=== PATIENT | female | born 1940 | race Caucasian/White ===

== ENCOUNTER → 2017-03-02 18:25 | Outpatient (CLI) | payer MEDICARE, OTHER ==
[2014-11-12 07:06] VITALS: BMI 44.2
[~2017-03-02 18:25] MED LIST: ALBUTEROL0.63 MG/3; ATIVAN2 MG PO; AVAPRO150 MG PO; BAYER CHEWABLE81 MG PO; CELEXA20 MG PO; COMBIVENT RESPIM4 GM INH; FEXOFENADINE HC60 MG PO; FLOVENT DI50 MCG/DIS; HYDROCODONE-APA1 TAB PO; LASIX80 MG PO; POTASSIUM; PRAVASTATIN SOD10 MG PO
== END | disposition home or self-care (01) ==
LOC: D.MAMMO 14:45
DX: Z12.31 Encounter for screening mammogram for malignant neoplasm of breast (principal)

== ENCOUNTER 2017-06-07 11:19 | Outpatient (CLI) | payer MEDICARE, OTHER ==
[~2017-06-07] VITALS: Ht 182.9 cm; Wt 154.5 kg
--- NOTE | ~2017-06-07 | HEMODYNAMI ---
PATIENT:BABAR BROOKE MEDICAL RECORD: [id number] : 42 LOCATION:[facility] ADMISSION DATE: 06/07/17 Generatedon:06/07/201714:34 Patient name: BABAR BROOKE Patient #: [id number] SSN: : 1940 Date of study: 06/07/2017 Page: Of Hemodynamic Procedure Report Patient Data Patient Demographics Procedure consent was obtained First Name: BABAR Gender: Female Last Name: MENDY : 1940 Middle Initial: M Age: 77 year(s) Patient #: [id number] Race: Unknown Additional ID: [id number] Contact details Address: [address] [place] [address] State: [place] City: [place] Zip code: [address] Admission Admission Data Admission Date: 06/07/2017 Admission Time: 11:19 Admit Source: Other Lab Results Lab Result Date: 06/07/2017 Lab Result Time: 0:15 Biochemistry Name Units Result Min Max BUN mg/dl 21 --(----)-* 7 18 Creatinine mg/dl 0.8 --(-*--)-- 0.6 1.3 CBC Name Units Result Min Max Hematocrit % 35.4 *-(----)-- 42 54 Hemoglobin g/dl 11.6 *-(----)-- 13.5 17.5 Procedure Procedure Types Cath Procedure Diagnostic Procedure C [facility] w/Coronaries Miscellaneous Procedures Moderate Sedation up to 30 minutes Procedure Description Procedure Date Procedure Date: 06/07/2017 Procedure Start Time: 14:18 Procedure End Time: 14:32 Procedure Staff Name Function Gabriel Fay MD Performing Physician Rain Marie RT Scrub Marko Rubio RN Nurse Oscar Montiel RT Heart Nurse Dionte Sesay RT Monitor Procedure Data Cath Procedure Fluoroscopy Diagnostic fluoroscopy Total fluoroscopy Time: 2.1 time: 2.1 min min Diagnostic fluoroscopy Total fluoroscopy dose: 598 dose: 598 mGy mGy Contrast Material Contrast Material Type Amount (ml) Isovue 300 57 Entry Location Entry Primary Successful Side Size Upsize Upsize Entry Closure Succes sful Closure Location (Fr) 1 (Fr) 2 (Fr) Remarks Device Remarks Femoral Right 5 Fr Exoseal artery Estimated blood loss: 5 ml Diagnostic catheters Device Type Used For End Catheter Placement Cordis 5Fr JL 4.0 Procedure Catheter (MP) Cordis 5Fr 3DRC Catheter Procedure (MP) Cordis 5Fr Pigtail Procedure Catheter (MP) Procedure Complications No complications Procedure Medications Medication Administration Route Dosage Oxygen NC 2 l/min Heparin Flush Bag added to field 2 bags (1000units/500ml NS) 0.9% NaCl I.V. 100 ml/hr Versed I.V. 1 mg Fentanyl I.V. 50 mcg Hemodynamics Rest Heart Rate: 53 (bpm) Pressure Samples Time Site Value (mmHg) Purpose Heart Use Rate(bpm) 14:26 LV 138/10,20 Snapshot 61 14:27 AO 137/52(85) Pullback 56 14:27 LV 137/13,22 Pullback 56 Gradients Valve Time Site 1 Site 2 Mean SEP/DFP Peak To Heart Use (mmHg) (sec/min) Peak Rate (mmHg) (bpm) Aortic 14:27 LV AO 7 18 0 56 137/13,22 137/52(85) Calculations Valve P-P Mean Valve Index Valve Source Name Gradient Area Flow (cm2) Aortic 0 7 0 7 Snapshots Pre Cath Intra NCS Post Cath Vital Signs Time Heart Resp SPO2 NIBP (mmHg) Rhythm Pain Sedation Rate (ipm) (%) Status Level (bpm) 14:08:35 56 20 100 149/128(148) NSR 0 (11) 10(A) , No pain 14:13:26 50 19 100 153/68(124) NSR 0 (11) 10(A) , No pain 14:18:15 53 20 100 144/76(109) NSR 0 (11) 9(A) , No pain 14:23:59 52 18 100 137/54(102) NSR 0 (11) 9(A) , No pain 14:28:46 56 17 100 135/61(109) NSR 0 (11) 9(A) , No pain 14:30:37 51 19 100 137/65(108) NSR 0 (11) 9(A) , No pain Medications Time Medication Route Dose Verified Delivered Reason Notes Effec tiveness by by 14:07:24 Oxygen NC 2 Marko Marko Per l/min Ramiro Rubio RN physician RN 14:07:34 Heparin Flush added 2 Marko Nicky used for Bag to bags Ramiro Rubio commercial artist (1000units/500ml field RN NS) 14:07:44 0.9% NaCl I.V. 100 Marko Zhu Per ml/hr Ramiro Rubio RN physician RN 14:14:08 Fentanyl I.V. 50 Marko Marko for mcg Ramiro Rubio RN sedation RN 14:14:43 Versed I.V. 1 mg Marko Marko for Ramiro Rubio RN sedation assembler leather goods Log Time Note 13:40:35 Oscar Montiel RT(R) sent for patient. Start room use. 13:52:05 Informed consent obtained and on chart 13:52:10 Admit Source: Other 13:52:33 Diagnostic Cath status Elective 13:52:43 Time tracking: Regular hours 13:52:46 Plan of Care:Hemodynamics will remain stable., Cardiac rhythm will remain stable., Comfort level will be maintained., Respiratory function will remain adequate., Patient/ family verbilizes understanding of procedure., Procedure tolerated without complication., Recovers from procedure without complications.. 13:54:15 Patient received from Pre/Post Procedure Room to CCL 2 Alert and oriented. Tansferred to table in Supine position. 13:54:16 Warm blankets applied, and augustine hugger turned on for patient comfort. 13:54:16 Correct patient and procedure confirmed by team. 13:54:17 ECG and BP/O2 sat monitors applied to patient. 13:58:53 H&P Date Dictated: 06/07/2017 Within 30 days and on chart., H&P Addendum completed by physician on day of procedure. (MUST COMPLETE FOR ALL OUTPATIENTS). 13:58:55 Pre-op teaching completed and patient verbalized understanding. 13:58:58 Family in patients room. 13:59:00 Patient NPO since Midnight. 13:59:02 Is the patient allergic to Iodine/contrast media? No. 13:59:06 Is patient on blood thinner?No 13:59:10 Patient diabetic? No. 13:59:13 Previous problem with sedation/anesthesia? No ? 13:59:14 Patient not . Patient is over age 55. 13:59:17 Snore? Yes 13:59:18 Sleep apnea? Yes 13:59:20 Deviated septum? No 13:59:20 Opens mouth fully? Yes 13:59:21 Sticks out tongue? Yes 13:59:34 Airway obstruction? Yes COPD, Asthma 13:59:41 Dentures? Yes IN 14:06:57 Vital chart was started 14:07:24 Oxygen 2 l/min NC was administered by Marko Rubio RN; Per physician; 14:07:34 Heparin Flush Bag (1000units/500ml NS) 2 bags added to field was administered by Marko Rubio RN; used for procedure; 14:07:44 0.9% NaCl 100 ml/hr I.V. was administered by Marko Rubio RN; Per physician; 14:10:54 Modified Rajendra's test Ulnar > 7 seconds. 14:11:00 IV patent on arrival in right antecubital with 0.9% NaCl at [facility]. 14:11:37 Lab Result : BUN 21 mg/dl 14:11:37 Lab Result : Hemoglobin 11.6 g/dl 14:11:37 Lab Result : Creatinine 0.8 mg/dl 14:11:37 Lab Result : Hematocrit 35.4 % 14:11:39 Lab results completed and on chart. 14:11:42 Right groin area was prepped with chlora-prep and draped in sterile fashion 14:11:48 Alarms reviewed by R. N. 14:11:48 Sharps counted by scrub and verified by R.N. 14:11:56 Use device set Femoral Dx 14:11:57 Tegaderm 4 x 4 opened to sterile field. 14:11:58 Acist Manifold opened to sterile field. 14:11:59 Acist Hand Control opened to sterile field. 14:12:00 Acist Syringe opened to sterile field. 14:12:00 Bag Decanter opened to sterile field. 14:12:00 Medline Cath Pack opened to sterile field. 14:12:01 Terumo 5Fr Linch Sheath opened to sterile field. 14:12:01 St Cristian 260cm J .035 wire opened to sterile field. 14:12:02 Diagnostic Infinity 5Fr Multipack catheter opened to sterile field. 14:12:07 Physician arrived 14:12:07 --------ALL STOP TIME OUT------ 14:12:08 Final Timeout: patient, procedure, and site verified with staff and physician. All members of the team are in agreement. 14:12:09 Right groin site verified by team. 14:12:12 Physical assessment completed. ASA score P 2 - A patient with mild systemic disease as per Gabriel Fay MD. 14:12:15 Sedation plan: IV Moderate Sedation Versed, Fentanyl 14:14:08 Fentanyl 50 mcg I.V. was administered by Marko Rubio RN; for sedation; 14:14:41 Baseline sample Acquired. 14:14:43 Versed 1 mg I.V. was administered by Marko Rubio RN; for sedation; 14:17:57 Procedure started. 14:17:57 Full Disclosure recording started 14:18:08 Local anesthetic to right femoral artery with Lidocaine 2% by Gabriel Fay MD.INITIAL ACCESS ONLY 14:18:16 A 5 Fr sheath was inserted into the Right Femoral artery 14:18:34 Zero performed for pressure channel P1 14:19:21 Rhythm: sinus rhythm 14:21:06 A Cordis 5Fr JL 4.0 Catheter (MP) was advanced over the wire and used for Procedure. 14:22:02 LCA angiography performed. 14:22:58 Catheter exchanged over wire. 14:23:02 A Cordis 5Fr 3DRC Catheter (MP) was advanced over the wire and used for Procedure. 14:24:12 RCA angiography performed. 14:24:52 Catheter exchanged over wire. 14:24:55 A Cordis 5Fr Pigtail Catheter (MP) was advanced over the wire and used for Procedure. 14:26:16 LV hemodynamics recorded. 14:26:42 LV gram done using ARRIOLA 14::44 Injector settings: Ml/sec: 10, Volume: 20, 14::27 EF : 35 % 14::42 Catheter removed. 14::49 Cordis 5Fr Exoseal opened to sterile field. 14:28:47 Sheath removed intact; hemostasis achieved with Exoseal to the Right Femoral artery. 14:28:50 Procedure ended.(Physican Out) 14:29:38 Fluoroscopy time 02.10 minutes. ::42 Fluoroscopy dose: 598 mGy 14:: Flurop Dose total: 598 14:29:45 Contrast amount:Isovue 300 57ml. 14:29:46 Sharps counted by scrub and verified by R.N. 14:29:48 Insertion/operative site no bleeding no hematoma. 14:29:51 Post-op/insertion site Right Femoral artery dressed using a 4 x 4 and Tegaderm. 14:29:57 Post right femoral artery:stable, soft, clean and dry 14:29:59 Post Procedure Pulses reassessed and unchanged 14:30:01 Post-procedure physical assessment completed. ASA score P 2 - A patient with mild systemic disease as per Gabriel Fay MD. 14:30:03 Post procedure rhythm: unchanged. 14:30:07 Estimated blood loss: 5 ml 14:30:08 Post procedure instruction explained to patient.Patient verbalizes understanding. 14:30:08 Patient needs reinforcement of post procedure teaching. 14:30:28 Procedure type changed to Cath procedure, Diagnostic procedure, LHC, LHC w/Coronaries, Miscellaneous Procedures, Moderate Sedation up to 30 minutes 14:32:22 Procedure and supply charges have been captured, reviewed, submitted and are correct. 14:32:26 Procedure Complication : No complications 14:32:30 Vital chart was stopped 14:32:30 See physician's report for complete and final results. 14:32:31 Report given to Pre/Post Procedure Room. 14:32:33 Patient transfered to Pre/Post Procedure Room with Stretcher. 14:32:39 Procedure ended. 14:32:39 Full Disclosure recording stopped 14:32:44 End room use (Document Last) Device Usage Item Name Manufacture Quantity Catalog Hospital Part Current Minimal Lo t# / Number Charge Number Stock Stock Serial# Code Tegaderm 4 3M 1 [id number] [id number] [id number] 5 x 4 Acist Acist 1 21609 384317 298534 864349 5 Manifold [employer] Inc Acist Hand Acist 1 93581 954552 873800 105632 5 Control Medical Systems Inc Acist Acist 1 47273 180386 006550 538326 20 Syringe Medical Systems Inc Bag Microtek 1 2002S 187874 74742 891565 5 [employer]ip[employer] Medline Cardinal 1 [id number] 646744 78235 402236 5 Cath Pack Health Terumo 5Fr Terumo 1 [id number] 276846 217328 532148 [address] Crist[address] St Cristian 1 105459 813907 926116 505328 30 260cm J .035 wire Diagnostic Cardinal 1 [id number] 592710 54113 977837 30 Infinity Health 5Fr Multipack catheter Cordis 5Fr Cardinal 1 351455 5 JL 4.0 Health Catheter (MP) Cordis 5Fr Cardinal 1 399746 5 3DRC Health Catheter (MP) Cordis 5Fr Cardinal 1 904780 5 Pigtail Health Catheter (MP) Cordis 5Fr Cardinal 1 EX500 823797 624402 187273 10 [facility] UNI5 Signature Audit [place] Stage Time Signature Unsigned Intra-Procedure 06/07/2017 Dionte Sesay 2:34:48 PM RT(R) Signatures Monitor : Dionte Sesay RT Signature : Date : Time : [address] [place] [address]
[2017-06-07] MEDS ORDERED: VITAMIN B-122500 MCG PO (12:30)
[2017-06-07] MEDS ORDERED: DEXILANT60 MG PO (12:30)
[2017-06-07] MEDS ORDERED: TESSALON PERLE100 MG PO (12:31)
[2017-06-07] MEDS ORDERED: COMBIVENT RESPIM4 GM INH (12:32)
[2017-06-07 12:33] LABS: BASOPHILS 0.3 % (0-2); HEMATOCRIT 35.4 % (36.0-48.0); HEMOGLOBIN 11.6 g/dL (12-16); IMMATURE GRANULOCYTES 0.2 % (0-5); LYMPHOCYTES 34.7 % (15-50); MCH 31.3 pg (26.0-34.0); MCHC 32.8 g/dL (31.0-37.0); MCV 95.4 fL (80.0-100.0); MEAN PLATELET VOLUME 9.6 fL (7.4-10.4); MONOCYTES 8.9 % (2-11); NEUTROPHILS 53.9 % (40-80); PLATELET COUNT 306 10x3/uL (130-400); RBC 3.71 10x6/uL (4.00-5.40); RDW 14.6 % (11.5-14.5)
[2017-06-07] MEDS ORDERED: CALCIUM 600+D T1 TA1 PO (12:33)
[2017-06-07] MEDS ORDERED: SINGULAIR10 MG PO (12:34)
[2017-06-07] MEDS ORDERED: ZYLOPRIM300 MG PO (12:35)
[2017-06-07 12:36] VITALS: BP 141/59; Ht 182.9 cm; Wt 154.5 kg
[2017-06-07 12:40] LABS: ANION GAP 10.1 mmol/L (8-16); CALCIUM 8.9 mg/dL (8.5-10.1); CARBON DIOXIDE 32.5 mmol/L (21.0-32.0); CREATININE - SERUM 0.8 mg/dL (0.6-1.3); POTASSIUM - SERUM 4.6 mmol/L (3.5-5.1)
--- NOTE | 2017-06-07 14:57 | NUR ---
1445 RECIEVED TO ROOM VIA STRETCHER WITH REPORTS OF A CLEAN CATH 6 FR EXOSEAL R/GROIN CDI NO BLEEDING NO HEMATOMA NOTED. VSS WITH CHEST PAIN DENIED FAMILY AT SIDE
--- NOTE | 2017-06-07 15:17 | NUR ---
1500 REPORT AND CARE FROM BELEM HOWARD RN, PT DENIES ANY C/O, DRESSING TO RIGHT GROIN IS CDI, AREA IS SOFT AND NONTENDER. PEDAL PULSES PALPABLE, CAP REFILL IS BRISK, VSS. FAMILY AT BEDSIDE. PT INSTRUCTED TO KEEP RIGHT LEG STRAIGHT AND HEAD TO PILLOW AND VERBALIZES UNDERSTANDING. CALL LIGHT IS IN REACH. FAMILY AT BEDSIDE.
--- NOTE | 2017-06-07 15:30 | NUR ---
1530 PT SLEEPING,AWAKENS EASILY TO VERBAL STIMULI, DRESSING TO RIGHT GROIN IS CDI, AREA IS SOFT AND NONTENDER. PEDAL PULSES PALPABLE. AT BEDSIDE. PT DENIES NEEDS AT THIS TIME.
--- NOTE | 2017-06-07 16:00 | NUR ---
1600 PT DENIES ANY C/O. DRESSING TO RIGHT GROIN CDI, VSS, CALL LIGHT IN REACH, PT DENIES NEEDS AT THIS TIME.
--- NOTE | 2017-06-07 17:11 | NUR ---
1630 SANDWICH TRAY SERVED. DRESSING REMAINS CDI, GROIN IS SOFT AND NONTENDER. PEDAL PULSES PALPABLE. AT BEDSIDE, PT DENIES ANY C/O AT THIS TIME.
--- NOTE | 2017-06-07 17:13 | NUR ---
1700 IV DC'D WITH CATH INTACT. DRESSING REMAINS CDI TO RIGHT GROIN, PT DENIES ANY C/O. PT IS DRESSING FOR DC TO HOME.
--- NOTE | 2017-06-07 17:54 | NUR ---
1730 PT IS DRESSED FOR DC TO HOME. DRESSING TO RIGHT GROIN IS CDI, AREA IS SOFT AND NONTENDER. REVIEWED DC INSTRUCTIONS WITH PT WHO VERBALIZES UNDERSTANDING. WRITTEN COPIES PROVIDED TO PT. PT ESCORTED TO PRIVATE AUTO VIA WC BY STAFF WITH DRIVING HER HOME.
== END 2017-06-07 17:30 | disposition home or self-care (01) ==
LOC: D.CATH 11:19
PROVIDERS: Internal Medicine Cardiovascular Disease
DX: I25.10 Atherosclerotic heart disease of native coronary artery without angina pectoris (principal); I51.9 Heart disease, unspecified; R94.31 Abnormal electrocardiogram [ECG] [EKG]; I42.9 Cardiomyopathy, unspecified; I10 Essential (primary) hypertension; J44.9 Chronic obstructive pulmonary disease, unspecified; E78.5 Hyperlipidemia, unspecified; G62.9 Polyneuropathy, unspecified; K21.9 Gastro-esophageal reflux disease without esophagitis; F32.9 Major depressive disorder, single episode, unspecified; F41.9 Anxiety disorder, unspecified; Z87.891 Personal history of nicotine dependence; Z79.82 Long term (current) use of aspirin; Z79.891 Long term (current) use of opiate analgesic; Z79.899 Other long term (current) drug therapy; Z88.2 Allergy status to sulfonamides

== ENCOUNTER → 2017-09-21 13:26 | Outpatient (CLI) | payer MEDICARE, OTHER ==
[2017-06-07 12:36] VITALS: BMI 46.2
[~2017-09-21 13:26] MED LIST changes: +CALCIUM 600+D T1 TA1 PO; +DEXILANT60 MG PO; +K-DUR20 MEQ PO; +SINGULAIR10 MG PO; +TESSALON PERLE100 MG PO; +VITAMIN B-122500 MCG PO; +ZYLOPRIM300 MG PO
== END | disposition home or self-care (01) ==
LOC: D.RAD 09-01 08:00 → D.RT 09-01 08:00 → D.RAD 09-01 09:00 → D.RT 13:26
DX: J45.909 Unspecified asthma, uncomplicated (principal)

== ENCOUNTER 2017-10-01 15:03 | Observation (INO) | payer MEDICARE, OTHER ==
[~2017-10-01] VITALS: Ht 182.9 cm; Wt 152.4 kg
[~2017-10-01 15:03] MED LIST changes: -K-DUR20 MEQ PO
[2017-10-01 17:31] LABS: APPEARANCE CLEAR (CLEAR); COLOR YELLOW (YELLOW); GLUCOSE NEGATIVE (NEGATIVE); KETONE NEGATIVE (NEGATIVE); NITRITE NEGATIVE (NEGATIVE); PROTEIN NEGATIVE (NEGATIVE)
[2017-10-01 17:32] LABS: BILIRUBIN NEGATIVE (NEGATIVE); UROBILINOGEN NORMAL (NORMAL)
[2017-10-01 17:53] LABS: BASOPHILS 0.1 % (0-2); EOSINOPHILS 0.7 % (0-7); HEMATOCRIT 34.3 % (36.0-48.0); HEMOGLOBIN 11.3 g/dL (12-16); IMMATURE GRANULOCYTES 0.3 % (0-5); LYMPHOCYTES 20.6 % (15-50); MCHC 32.9 g/dL (31.0-37.0); MCV 94.2 fL (80.0-100.0); MEAN PLATELET VOLUME 9.4 fL (7.4-10.4); MONOCYTES 4.7 % (2-11); NEUTROPHILS 73.6 % (40-80); PLATELET COUNT 298 10x3/uL (130-400); RBC 3.64 10x6/uL (4.00-5.40); RDW 14.6 % (11.5-14.5)
[2017-10-01 18:11] LABS: ALBUMIN 3.2 g/dL (3.4-5.0); BILIRUBIN - TOTAL 0.4 mg/dL (0.2-1.3); CARBON DIOXIDE 31.8 mmol/L (21.0-32.0); CREATININE - SERUM 0.8 mg/dL (0.6-1.3); POTASSIUM - SERUM 3.8 mmol/L (3.5-5.1); PROTEIN - SERUM 6.8 g/dL (6.4-8.2)
[2017-10-02] VITALS: BP 84/51
[2017-10-02] MEDS ORDERED: K-DUR20 MEQ PO (00:07)
[2017-10-02 00:56] VITALS: BP 84/54; BMI 45.7
--- NOTE | 2017-10-02 01:05 | NUR ---
ADMISSION ASSESSMENT COMPLETE. CALLED DR MITTAL PER PT REQUEST FOR NORCO 10 Q6 PRN, AND ATIVAN 2 MG PO QHS/PRN. ORDERS RECEIVED. WILL MONITOR FOR NEEDS.
[2017-10-02 01:44] LABS: CKMB 0.8 U/L (0.0-3.6); CREATINE KINASE 58 UL (21-215)
[2017-10-02 01:48] LABS: TROPONIN-I < 0.017 ng/mL (0.000-0.060)
[2017-10-02 04:00] VITALS: BP 136/52
--- NOTE | 2017-10-02 07:00 | NUR ---
PT REC'D FROM [facility]. RESTING IN BED EATING BREAKFAST. NO COMPLAINTS OF PAIN. AAOX4. SLIGHT WEAKNESS NOTED TO BLE. PT STATES SHE HAS BEEN GETTING UP TO THE BSC WITH THE HELP OF ONE PERSON. TELEMETRY IN PLACE. REGULAR HEART RATE AND RHYTHM. LUNG SOUNDS CLEAR AND EQUAL BILAT. BOWEL SOUNDS ACTIVE X4 QUADS. SKIN CDI. PIV TO L HAND FREE OF REDNESS AND SWELLING. BED LOW, CALL LIGHT IN REACH, DENIES NEEDS. CPOC.
[2017-10-02 07:43] LABS: CKMB 0.8 U/L (0.0-3.6); CREATINE KINASE 47 UL (21-215)
[2017-10-02 07:46] LABS: TROPONIN-I < 0.017 ng/mL (0.000-0.060)
[2017-10-02 08:17] LABS: BASOPHILS 0.2 % (0-2); EOSINOPHILS 2.9 % (0-7); HEMATOCRIT 31.2 % (36.0-48.0); HEMOGLOBIN 10.2 g/dL (12-16); LYMPHOCYTES 40.3 % (15-50); MCH 30.6 pg (26.0-34.0); MCHC 32.7 g/dL (31.0-37.0); MCV 93.7 fL (80.0-100.0); MEAN PLATELET VOLUME 9.4 fL (7.4-10.4); MONOCYTES 9.3 % (2-11); NEUTROPHILS 47.3 % (40-80); PLATELET COUNT 298 10x3/uL (130-400); RBC 3.33 10x6/uL (4.00-5.40); RDW 14.6 % (11.5-14.5); WBC 6.2 10x3/uL (4.8-10.8)
[2017-10-02 08:27] LABS: ALBUMIN 2.8 g/dL (3.4-5.0); ALKALINE PHOSPHATASE 90 U/L (46-116); ALT (SGPT) 16 U/L (10-68); CALC OSMOLALITY 283 mosm/kg (275-300); CALCIUM 8.8 mg/dL (8.5-10.1); CARBON DIOXIDE 26.9 mmol/L (21.0-32.0); CHLORIDE - SERUM 103 mmol/L (98-107); CREATININE - SERUM 0.7 mg/dL (0.6-1.3); GLUCOSE 85 mg/dL (74-106); POTASSIUM - SERUM 3.5 mmol/L (3.5-5.1); PROTEIN - SERUM 6.2 g/dL (6.4-8.2); SODIUM 141 mmol/L (136-145); UREA NITROGEN 23 mg/dL (7-18); eGFR NON AFRICAN AMERICAN 86 mL/min (90-120)
[2017-10-02 10:10] VITALS: BP 113/65
[2017-10-02 12:40] LABS: CKMB 0.8 U/L (0.0-3.6); CREATINE KINASE 76 UL (21-215)
[2017-10-02 12:43] LABS: TROPONIN-I < 0.017 ng/mL (0.000-0.060)
--- NOTE | 2017-10-02 12:43 | NUR ---
DR. MITTAL PAGED REGARDING DISCHARGE.
[2017-10-02 13:39] VITALS: BP 110/68
[2017-10-02 14:37] VITALS: Ht 182.9 cm; Wt 152.4 kg
--- NOTE | 2017-10-02 15:36 | NUR ---
DISCHARGE INSTRUCTIONS REVIEWED AT THIS TIME. NO QUESTIONS OR CONCERNS VOICED. PIV TO L HAND DC'D WITH CATHETER INTACT. ASSISTED WITH DRESSING. ESCORTED OUT VIA WC BY LINA BACON.
--- NOTE | 2017-10-03 11:39 | CN ---
PATIENT NAME:BABAR BROOKE MEDICAL RECORD: [id number] : 42 LOCATION:[facility] ADMIT DATE: 10/01/17 ACCOUNT: [id number] CONSULTING PHYSICIAN: ABIMBOLA NICK MD REFERRING PHYSICIAN: RAUL MITTAL MD DATE OF CONSULTATION: 10/02/2017 HISTORY OF PRESENT ILLNESS: A 77-year-old female with a history of nonischemic cardiomyopathy, followed typically by Dr. Fay. Admitted with syncope. She was at the denist office in the bathroom and became pale, lightheaded, near syncope. She had her Lasix increased lately. Has not had as much p.o. intake and showed to have marked elevated BUN with normal creatinine. We are asked to see her concerning her cardiovascular status. Currently feeling back to baseline. PAST MEDICAL HISTORY: Includes; 1. History of hypertension. 2. Cardiomyopathy as described above. 3. Gouty arthritis. 4. Obstructive pulmonary disease. ALLERGIES: SULFA, CODEINE. MEDICATIONS: Typically include Kristin 60 b.i.d., Combivent 1 puff four times a day, Avapro 150 every day, aspirin 81 every day, Celexa 20 every day, [place] 10/325 every 6 hours p.r.n., Ativan 2 mg at bedtime p.r.n., Lasix 80 b.i.d., Dexilant 60 every day, allopurinol 300 every day. SOCIAL HISTORY: Nonsmoker. Nondrinker. Typically takes care of all ADLs and does do cardiac rehab. Trying to take care of her , who has had hip replacement. REVIEW OF SYSTEMS: The patient reports easy bruising but reports no swollen glands. The patient reports no fever, no night sweats, no significant weight gain, no significant weight loss. No significant exercise tolerance. The patient reports no dry eyes, no irritation, no vision change. Patient reports no difficulty hearing and no ear pain. Patient reports no frequent nose bleeds or nose and sinus problems. Patient reports on arm pain on exertion. No shortness of breath while lying down. No history of heart murmur. Patient reports no cough, no wheezing or coughing up blood. Patient reports no abdominal pain, no vomiting. Normal appetite. No diarrhea and not vomiting blood. No nausea and no constipation. Patient reports no incontinence. No difficulty urinating. No hematuria. No increased frequency. Patient reports no muscle aches. No weakness, no arthralgias, no back pain. No swelling of the extremities. Patient reports no abnormal mole, no jaundice, no rashes. Reports no loss of consciousness. No weakness and no numbness. No seizures, dizziness, or headaches. The patient reports no depression, no sleep disturbance, feeling safe in a relationship and no alcohol abuse. Patient reports on fatigue. Reports no runny nose or sinus pressure. No itching, no hives, and no frequent sneezing. PHYSICAL EXAMINATION: GENERAL: Pleasant female, in no acute distress, alert and oriented. VITAL SIGNS: Blood pressure 113/65. Pulse 87 and regular, occasional extra systole. CONSULT REPORT [id number] BABAR BROOKE HEENT: Normocephalic and atraumatic. NECK: No bruits are noted. HEART: Regular. Did not hear an S3. A II/ systolic ejection murmur. LUNGS: Fairly good air excursion. ABDOMEN: Soft and nontender. EXTREMITIES: Pulses 2+. There is 1 to 2+ edema. NEUROLOGIC: Grossly intact. DIAGNOSTIC DATA: ECG shows left bundle. IMPRESSION: Near syncope. Suspect intravascular volume depletion. BUN has decreased already from 28 to 23. No contraindication for discharge from a cardiovascular standpoint. TRANSINT:[id number] Voice Confirmation ID: [id number] DOCUMENT ID: [id number] ABIMBOLA NICK MD at 1139 CC: [id number] DICTATION DATE: 10/02/17 1221 TACK MAKER: 10/02/17 1308 DIS IN 10/02/17 [address] [place] [address]
--- NOTE | 2017-10-03 11:39 | EC ---
PATIENT:BABAR BROOKE DATE OF SERVICE: 10/01/17 SEX: F MEDICAL RECORD: [id number] DATE OF : 42 LOCATION:[facility] [place] AGE OF PATIENT: 77 ADMISSION DATE: 10/01/17 REFERRING PHYSICIAN: INTERPRETING PHYSICIAN: ABIMBOLA NICK MD ECHOCARDIOGRAM REPORT ECHO CHARGES 4 ECHO COMPLETE CLINICAL DIAGNOSIS: SYNCOPE HX OF HTN ECHOCARDIOGRAPHIC MEASUREMENTS (adult normal given) AC root (d.<3.7cm) 4.1 cm LV Septum d (<1.2 cm> 1.3 cm Valve Excursion 1.9 cm LV Septum (systole) 1.7 cm Left Atria (s.<4.0cm> 4.4 cm LVPW d(<1.2cm) 1.6 cm RV (d.<2.3cm) 4.3 cm LVPW (sytole) 1.8 cm LV diastole(<5.6CM) 6.1 cm MV E-F(>70mm/sec) cm LV systole 4.7 cm LVOT Diameter 1.8 cm MV exc.(>10mm) 1.7 cm Est.ejection fraction (50-75%) % Pericardial Effusion N DOPPLER: LVIT cm/sec A 118 cm/sec E 71.0 cm/sec LA cm/sec RVSP 35 mmHg LVOT 161 cm/sec AOP1/2T m/s Asc. Ao 195 cm/sec RVOT cm/sec RA cm/sec PA cm/sec AV Gradient Peak 15.18mmHg AV Mean 8.68 mmHg AV Area 2.5 cm MV Gradient Peak 7.64 mmHg MV Mean 2.59 mmHg MV Area cm COMMENTS: Biology Faculty Member: 2 VALENTÍN VELASQUEZ Creel Hand: 3 Dr. Castle TAPE# PACS DATE OF SERVICE: 10/02/2017 Adequate 2D, color flow, spectral Doppler, and M-mode. Borderline LVH. LV internal dimensions are normal. LV is globally hypokinetic with mildly reduced EF. Estimated EF of 40% to 45%. Aortic valve sclerosis without stenosis by Doppler interrogation. Left atrium is dilated at 4.4 cm. Mitral valve shows no prolapse. Mild MR. Right-sided chambers grossly normal. Mild TR. TRANSINT:[id number] Voice Confirmation ID: [id number] DOCUMENT ID: [id number] ECHOCARDIOGRAM REPORT [id number] MENDYBABAR FREDERICK GREGORY A MD at 1139 CC: [id number] DICTATION DATE: 10/02/17 1229 PROPERTY ADMINISTRATOR: 10/02/17 1313 DIS IN 10/02/17 [facility] [address] [place] [address]
== END 2017-10-02 15:37 | disposition home or self-care (01) ==
LOC: D.ER 15:03 → OBSVTIME 22:05 → D.MS 22:05
PROVIDERS: Family Medicine; Physician Assistant Medical; ADMIT Emergency Medicine
DX: R55 Syncope and collapse (principal); I42.9 Cardiomyopathy, unspecified; I10 Essential (primary) hypertension; M10.9 Gout, unspecified; J44.9 Chronic obstructive pulmonary disease, unspecified; G62.9 Polyneuropathy, unspecified; F41.9 Anxiety disorder, unspecified; F32.9 Major depressive disorder, single episode, unspecified